=== PATIENT | male | born 1960 | race Two or more races ===

== ENCOUNTER 2020-11-15 11:46 | Inpatient (IN) | payer MEDICAID, OTHER ==
[~2020-11-15] VITALS: Ht 167.6 cm; Wt 60.0 kg
[2020-11-15] MEDS ORDERED: cloNIDine HCL 0.1 MG TAB PO ONE (12:30)
[2020-11-15 13:06] LABS: Basophils # (auto) 0 10 ^3/uL (0-0.2); Basophils % (auto) 0.2 % (0.0-2.0); Eosinophils # (auto) 0 10 ^3/uL (0-0.8); Eosinophils % (auto) 0.3 % (0.0-7.0); Hematocrit 42.2 % (41.0-53.0); Hemoglobin 14.5 g/dL (13.5-17.5); Lymphocytes # (auto) 0.7 10 ^3/uL (0.4-5.4); Lymphocytes % (auto) 8.2 % (10.0-50.0); Mean Corpuscular Hemoglobin 28.4 pg (28.0-32.0); Mean Corpuscular Hgb Conc. 34.3 g/dL (32.0-36.0); Mean Corpuscular Volume 82.9 fL (80.0-100.0); Monocytes # (auto) 1.2 10 ^3/uL (0-1.3); Monocytes % (auto) 12.9 % (0.0-12.0); Neutrophils # (auto) 7.2 10 ^3/uL (1.6-8.6); Neutrophils % (auto) 78.4 % (37.0-80.0); Red Cell Distribution Width 13.8 % (11.8-14.3); White Blood Cell 9.1 10^3/uL (4.4-10.8)
[2020-11-15 13:51] LABS: Chloride 96 mmol/L (98-107); Potassium 3.8 mmol/L (3.5-5.1); Sodium 129 mmol/L (136-145)
[2020-11-15 13:56] LABS: Alanine Aminotransferase 15 U/L (16-61); Albumin 2.8 g/dL (3.4-5.0); Anion Gap 10 (5-15); Aspartate Aminotransferase 17 U/L (15-37); BUN/Creatinine Ratio 11.8; Blood Urea Nitrogen 8 mg/dL (7-18); Carbon Dioxide 23 mmol/L (21-32); GFR African American 152 mL/min; GFR Non-African American 126 mL/min; Glucose 112 mg/dL (74-106); Magnesium 2.4 mg/dL (1.6-2.6)
[2020-11-15 14:03] LABS: Alkaline Phosphatase 99 U/L (45-117); Bilirubin, Total 0.5 mg/dL (0.2-1.0)
[2020-11-15] MEDS ORDERED: LORazepam 2MG/ML-1ML VIAL IV PRN (16:45)
[2020-11-15] MEDS ORDERED: DOCUSATE SOD 100 MG CAP PO PRN (16:45)
[2020-11-15] MEDS ORDERED: HYDROcodone-ACET 5/325MG TAB PO PRN (16:45)
[2020-11-15] MEDS ORDERED: ONDANSETRON HCL 4 MG/2 ML VIAL IV PRN (16:45)
[2020-11-15] MEDS ORDERED: ALBUTEROL SULF 2.5 MG/0.5ML(0.5%) NEB SOLN NEB PRN (16:45)
[2020-11-15] MEDS ORDERED: MORPHINE SULFATE INJECTION 2 MG/ML SYRG IV PRN ×2 (16:45)
[2020-11-15] MEDS ORDERED: ACETAMINOPHEN 500 MG TAB PO PRN (16:45)
[2020-11-15] MEDS ORDERED: hydrALAZINE HCL 20 MG/ML VL IV PRN (16:45)
[2020-11-15] MEDS ORDERED: NITROGLYCERIN 0.4 MG SL TAB SL PRN (16:45)
[2020-11-15 18:12] LABS: Cholesterol 163 mg/dL (< 200); HDL Cholesterol 44 mg/dL (40-59); LDL Cholesterol 105 mg/dL (< 100); Triglycerides 87 mg/dL (< 150)
[2020-11-15] MEDS: FOLIC ACID 1 MG, MULTIPLE VITAMIN 10 ML, MAGNESIUM SULF SDV 50% 8 MEQ, THIAMINE INJ 100... INJ SCH ×5 (18:32)
[2020-11-15 18:50] LABS: Alcohol, Urine < 3.0 mg/dL (0-10); Amphetamine Screen, Urine NEGATIVE (NEGATIVE); Barbiturate Scree,Urine NEGATIVE (NEGATIVE); Benzodiazephine Screen, Urine NEGATIVE (NEGATIVE); Cannabinoid Screen, Urine POSITIVE (NEGATIVE); Cocaine Screen, Urine NEGATIVE (NEGATIVE); Opiate Scree,Urine NEGATIVE (NEGATIVE); Phencyclidine Screen, Urine NEGATIVE (NEGATIVE)
[2020-11-15] MEDS ORDERED: chlordiazePOXIDE HCL 25 MG CAP PO PRN (19:15)
[2020-11-15 20:13] LABS: Urine Bacteria NONE SEEN /hpf (None Seen); Urine Blood 1+ /uL (Negative); Urine Mucus FEW (None Seen); Urine Specific Gravity 1.018 (1.001-1.035); Urine WBC 10 /hpf (0 - 3)
[2020-11-15 21:36] LABS: Cholesterol 146 mg/dL (< 200)
[2020-11-15 21:39] LABS: HDL Cholesterol 40 mg/dL (40-59); LDL Cholesterol 97 mg/dL (< 100); Triglycerides 72 mg/dL (< 150)
[2020-11-15] MEDS: ATORVASTATIN 20 MG TAB PO SCH (22:26)
[2020-11-16 03:04] VITALS: BP 136/66
[2020-11-16] MEDS: ASPirin 81 mg TAB PO SCH (10:42)
[2020-11-16] MEDS: amLODIPine BESYLATE 5 MG TAB PO SCH (10:43)
[2020-11-16] MEDS: PANTOPRAZOLE 40 MG TAB PO SCH (10:45)
[2020-11-16] MEDS: FOLIC ACID 1 MG, MULTIPLE VITAMIN 10 ML, MAGNESIUM SULF SDV 50% 8 MEQ, THIAMINE INJ 100... INJ SCH ×5 (13:28)
[2020-11-16 17:00] VITALS: BP 154/75
[2020-11-16 17:36] VITALS: BP 145/75
[2020-11-16 20:00] VITALS: BP 142/72
[2020-11-16 22:00] VITALS: BP 142/72
[2020-11-16] MEDS: ATORVASTATIN 20 MG TAB PO SCH (22:47)
[2020-11-17 05:00] VITALS: BP 138/71
[2020-11-17 06:30] LABS: Basophils # (auto) 0 10 ^3/uL (0-0.2); Basophils % (auto) 0.5 % (0.0-2.0); Eosinophils # (auto) 0.1 10 ^3/uL (0-0.8); Eosinophils % (auto) 1.7 % (0.0-7.0); Hematocrit 38.5 % (41.0-53.0); Lymphocytes # (auto) 1.4 10 ^3/uL (0.4-5.4); Lymphocytes % (auto) 18.1 % (10.0-50.0); Mean Corpuscular Hemoglobin 28.2 pg (28.0-32.0); Mean Corpuscular Hgb Conc. 33.9 g/dL (32.0-36.0); Mean Corpuscular Volume 83.2 fL (80.0-100.0); Monocytes # (auto) 1.2 10 ^3/uL (0-1.3); Monocytes % (auto) 14.4 % (0.0-12.0); Neutrophils # (auto) 5.2 10 ^3/uL (1.6-8.6); Neutrophils % (auto) 65.3 % (37.0-80.0); Nucleated Red Blood Cells % 0.1 %; Red Blood Cells 4.62 10^6/uL (4.5-5.90); Red Cell Distribution Width 13.3 % (11.8-14.3)
[2020-11-17] MEDS ORDERED: ALBUMIN 5% 250 ML IV ONE (06:45)
[2020-11-17 06:50] LABS: BUN/Creatinine Ratio 12.5; Calcium 8.3 mg/dL (8.5-10.1); Potassium 3.5 mmol/L (3.5-5.1)
[2020-11-17 09:00] VITALS: BP 145/79
[2020-11-17] MEDS: ASPirin 81 mg TAB PO SCH (09:44)
[2020-11-17] MEDS: amLODIPine BESYLATE 5 MG TAB PO SCH (09:45)
[2020-11-17] MEDS: PANTOPRAZOLE 40 MG TAB PO SCH (09:45)
[2020-11-17] MEDS ORDERED: NICOTINE 14 MG/24HR TOPICAL PATCH TD ONE (12:00)
[2020-11-17 13:00] VITALS: BP 157/83
[2020-11-17] MEDS: FOLIC ACID 1 MG, MULTIPLE VITAMIN 10 ML, MAGNESIUM SULF SDV 50% 8 MEQ, THIAMINE INJ 100... INJ SCH ×5 (13:00)
[2020-11-17 17:16] VITALS: BP 156/101
[2020-11-17] MEDS ORDERED: HCTZ 25 MG TAB PO ONE (19:30)
[2020-11-17] MEDS ORDERED: LOSARTAN POTASSIUM 50 MG TAB PO ONE (19:30)
[2020-11-17 20:00] VITALS: BP 153/89
[2020-11-17 22:00] VITALS: BP 153/89
[2020-11-17] MEDS: ATORVASTATIN 20 MG TAB PO SCH (22:48)
[2020-11-18 05:30] VITALS: BP 127/77
[2020-11-18 09:00] VITALS: BP 156/84
[2020-11-18] MEDS: NICOTINE 14 MG/24HR TOPICAL PATCH TD SCH (10:16)
[2020-11-18] MEDS: PANTOPRAZOLE 40 MG TAB PO SCH (10:17)
[2020-11-18] MEDS: amLODIPine BESYLATE 5 MG TAB PO SCH (10:17)
[2020-11-18] MEDS: HCTZ 25 MG TAB PO SCH (10:18)
[2020-11-18] MEDS: ASPirin 81 mg TAB PO SCH (10:18)
[2020-11-18 13:00] VITALS: BP 157/81
[2020-11-18] MEDS ORDERED: MIDAZOLAM HCL 2MG/2ML 2ml VIAL (1mg/ml) IV ONE (13:00)
[2020-11-18] MEDS ORDERED: LIDOCAINE VISCOUS 2% 15ML UD MT ONE (14:00)
[2020-11-18 16:30] VITALS: BP 152/81
[2020-11-18] MEDS ORDERED: CLOPIDOGREL BISULFATE 75 MG TAB PO ONE (17:00)
[2020-11-18 20:00] VITALS: BP 153/89
[2020-11-18] MEDS: ATORVASTATIN 20 MG TAB PO SCH (21:01)
[2020-11-18 22:00] VITALS: BP 139/74
[2020-11-18] MEDS ORDERED: LOSARTAN POTASSIUM 50 MG TAB PO SCH (22:00)
[2020-11-19 05:00] VITALS: BP 136/76
[2020-11-19 09:00] VITALS: BP 149/76
[2020-11-19] MEDS ORDERED: CLOPIDOGREL BISULFATE 75 MG TAB PO SCH (10:00)
[2020-11-19] MEDS: ASPirin 81 mg TAB PO SCH (10:05)
[2020-11-19] MEDS: NICOTINE 14 MG/24HR TOPICAL PATCH TD SCH (10:05)
[2020-11-19] MEDS: PANTOPRAZOLE 40 MG TAB PO SCH (10:05)
[2020-11-19] MEDS: HCTZ 25 MG TAB PO SCH (10:06)
[2020-11-19] MEDS: amLODIPine BESYLATE 5 MG TAB PO SCH (10:06)
[2020-11-19] MEDS ORDERED: AMLO-496 PO (11:51)
[2020-11-19] MEDS ORDERED: HYDR25TA5 PO (11:52)
[2020-11-19] MEDS ORDERED: LOSA-69 PO (11:52)
[2020-11-19] MEDS ORDERED: ATOR20TA50 PO (11:52)
[2020-11-19 11:59] VITALS: BP 149/76
[2020-11-19 13:00] VITALS: BP 144/82
== END 2020-11-19 13:00 | disposition home or self-care (01) | DRG 45 ==
LOC: ER 11:46 → TELE 16:39 → TELE-CENTR 11-16 15:52
PROVIDERS: ADMIT Nurse Practitioner Acute Care; ATTEND Internal Medicine Nephrology
PROC: B246ZZ4 Ultrasonography of Right and Left Heart, Transesophageal (ICD-10-PCS; principal; 2020-11-18)
DX: I63.9 Cerebral infarction, unspecified (principal); E43 Unspecified severe protein-calorie malnutrition; E87.1 Hypo-osmolality and hyponatremia; G81.91 Hemiplegia, unspecified affecting right dominant side; I16.1 Hypertensive emergency; F10.239 Alcohol dependence with withdrawal, unspecified; R29.6 Repeated falls; R47.81 Slurred speech; F12.90 Cannabis use, unspecified, uncomplicated; F17.210 Nicotine dependence, cigarettes, uncomplicated; I10 Essential (primary) hypertension; F19.10 Other psychoactive substance abuse, uncomplicated; Z20.822 Contact with and (suspected) exposure to COVID-19; F41.9 Anxiety disorder, unspecified; Z79.82 Long term (current) use of aspirin; Z79.899 Other long term (current) drug therapy; Z86.73 Personal history of transient ischemic attack (TIA), and cerebral infarction without residual deficits; Z91.81 History of falling; Z82.3 Family history of stroke; Z91.19 Patient's noncompliance with other medical treatment and regimen; Z68.21 Body mass index [BMI] 21.0-21.9, adult
CPT/HCPCS: 36415; 70450; 70551; 80048; 80053; 80061; 80307; 81001; 83735; 84484; 85025; 87426; 87493; 93005; 93312; 93886; 99152; G0378; J2250